=== PATIENT | female | born 1945 ===

== ENCOUNTER 2018-02-07 08:20 | Day surgery (SDC) | payer OTHER ==
[2017-04-22 12:31] VITALS: BMI 22.8
--- NOTE | 2018-02-07 11:46 | CP.SDSHP ---
Same Day Surgery H & P - History Proposed Procedure: US guided FNA of right thyroid nodule Pre-Op Diagnosis: right thyroid nodule - Allergies Allergies: Allergies calamine Allergy (Verified 02/07/18 09:09) RASH sulfamethoxazole [From Bactrim] Allergy (Verified 06/16/16 08:23) RASH trimethoprim [From Bactrim] Allergy (Verified 06/16/16 08:23) RASH - Physical Exam Vital Signs: Vital Signs 02/07/18 08:41 Temperature 97.6 F Pulse Rate 84 Respiratory 20 Rate Blood Pressure 163/91 H O2 Sat by Pulse 95 Oximetry - Impression Impression: Pt with 1.8 cm right thyroid nodule. Plan US guided FNA of right thyroid nodule. Pt. Evaluated Today:Candidate for Anesthesia & Procedure: No Short Stay Discharge - Short Stay Discharge Admitting Diagnosis/Reason for Visit: dx: thyroid nodule Disposition: HOME/ ROUTINE
--- NOTE | 2018-02-07 11:47 | PCM.SURG1 ---
Surgeon's Initial Post Op Note - Surgeon's Notes Surgeon: Trenton Sanders MD [place] Attendant: NONE Type of Anesthesia: Local Pre-Operative Diagnosis: Right thyroid nodule Operative Findings: 1.8 cm vascular right thyroid nodule Post-Operative Diagnosis: right thyroid nodule Operation Performed: US guided FNA of right thyroid nodule Specimen/Specimens Removed: 25 g FNA x 5 passes Estimated Blood Loss: EBL {In ML}: 1 Blood Products Given: N/A Drains Used: No Drains Post-Op Condition: Good Date of Surgery/Procedure: 02/07/18 Time of Surgery/Procedure: 11:45
[2018-02-07 12:12] VITALS: BP 156/72; PULSE 73; RESP 18; TEMP 97.8; O2SAT 97
--- NOTE | 2018-02-08 11:33 | US ---
PROCEDURE: Date of Procedure: 02/07/2018 PROCEDURE: 1. Ultrasound guided FNA of right thyroid nodule, CPT 18394 2. Ultrasound guidance for FNA, 24031 Medications: 3cc 1% Lidocaine HISTORY: Enlarged right thyroid nodule. TECHNIQUE: Following informed consent and procedure time-out, a limited ultrasound patient's neck confirmed the presence of a 1.cm complex right thyroid nodule which is predominantly solid. After the patient's neck was prepped and draped in the usual sterile fashion, the skin was anesthetized with 1% lidocaine. Ultrasound-guided fine needle aspiration was then performed of the dominant right thyroid nodule. A total of 5 passes were made into the nodule with 25 gauge needle under ultrasound guidance. The FNA specimen was sent for routine pathology. Post biopsy ultrasound showed no hematoma. IMPRESSION: Ultrasound-guided FNA of the dominant right thyroid nodule.
== END 2018-02-07 12:15 | disposition home or self-care (01) ==
LOC: C.SPRAD 08:20
PROVIDERS: ATTEND Radiology Vascular & Interventional Radiology
DX: E04.1 Nontoxic single thyroid nodule (principal)

== ENCOUNTER 2018-09-11 09:09 | Outpatient (CLI) | payer OTHER | END 2018-09-11 09:10 | disposition home or self-care (01) | LOC: C.MAMMO 09:09 | DX: Z12.31 Encounter for screening mammogram for malignant neoplasm of breast (principal) ==

== ENCOUNTER 2018-12-21 09:27 | Outpatient (CLI) | payer OTHER | END 2018-12-21 09:28 | disposition home or self-care (01) | LOC: C.CTH 09:27 | DX: R91.1 Solitary pulmonary nodule (principal) ==